=== PATIENT | male | born 1950 | race Caucasian/White ===

== ENCOUNTER 2019-04-14 14:21 | Emergency (ER) | payer MEDICARE, OTHER ==
[~2019-04-14] VITALS: Ht 175.3 cm; Wt 81.2 kg
[~2019-04-14 14:21] MED LIST: ASPI325 PO; Aspir-Low81 MG PO; BUDE10.22; CITA20 PO; HYDACE10B PO; INDO25 PO; LEVO750 PO; LISHYD1012 PO; METO25ER PO; OMEP20ER PO; SILSUL1TC TOP; SIMV10 PO
[2019-04-14] MEDS ORDERED: Ciprodex Otic7.5 ML RIGHTEAR (15:09)
== END 2019-04-14 15:16 | disposition home or self-care (01) ==
LOC: ER 14:21
DX: H60.91 Unspecified otitis externa, right ear (principal); Z79.899 Other long term (current) drug therapy; Z79.82 Long term (current) use of aspirin; I10 Essential (primary) hypertension; J45.909 Unspecified asthma, uncomplicated; E78.00 Pure hypercholesterolemia, unspecified; Z87.891 Personal history of nicotine dependence
CPT/HCPCS: 99282

== ENCOUNTER 2022-01-13 14:56 | Inpatient (IN) | payer MEDICARE, OTHER ==
[~2022-01-13] VITALS: Ht 175.3 cm; Wt 82.9 kg
[~2022-01-13 14:56] MED LIST changes: +Ciprodex Otic7.5 ML RIGHTEAR
[2022-01-13 15:21] LABS: BASOPHILS ABSOLUTE AUTO 0.03 K/mm3 (0.00-0.23); BASOPHILS PERCENT AUTO 0 % (0-2); EOSINOPHILS ABSOLUTE AUTO 0.09 K/mm3 (0.00-0.68); EOSINOPHILS PERCENT AUTO 1 % (0-6); Hematocrit 38.6 % (37.0-53.0); Hemoglobin 13.3 g/dL (13.5-17.5); IMMATURE GRAN ABSOLUTE AUTO 0.02 K/mm3 (0.00-0.10); IMMATURE GRAN PERCENT AUTO 0 % (0-1); LYMPHOCYTES ABSOLUTE AUTO 1.53 K/mm3 (0.84-5.20); LYMPHOCYTES PERCENT AUTO 21 % (21-46); MONOCYTES ABSOLUTE AUTO 0.72 K/mm3 (0.16-1.47); MONOCYTES PERCENT AUTO 10 % (4-13); Mean Corpuscular HGB 31.3 pg (26.0-34.0); Mean Corpuscular HGB Conc 34.5 g/dL (31.5-36.5); Mean Corpuscular Volume 91 fL (80-100); Mean Platelet Volume 10.2 fL (9.1-12.4); NEUTROPHILS ABSOLUTE AUTO 4.98 K/mm3 (1.96-9.15); NEUTROPHILS PERCENT AUTO 68 % (41-73); Platelet Count 177 K/mm3 (150-400); RDW Coefficient Variation 12.9 % (11.7-14.2); RDW Standard Deviation 42.4 fL (35.1-46.3); Red Blood Cell Count 4.25 M/mm3 (4.30-5.90); White Blood Cell Count 7.37 K/mm3 (4.00-11.30)
[2022-01-13 15:42] LABS: Bilirubin, Total 0.6 mg/dL (0.1-1.0); Bun/Creatinine Ratio 29.7 (12.0-20.0); Calcium, Blood 9.3 mg/dL (8.5-10.1); Creatinine, Blood 0.98 mg/dL (0.60-1.20); Globulin, Blood 4.2 g/dL (2.2-4.0); Potassium, Blood 4.7 mmol/L (3.5-5.5); Total Protein, Blood 8.2 g/dL (6.4-8.2)
[2022-01-13 17:06] LABS: International Normalized Ratio 1.11; Prothrombin Time Results 11.6 Sec (9.7-11.5)
--- NOTE | 2022-01-13 18:17 | NUR ---
PT ARRIVED TO UNIT, AMBULATED TO BED. ALERT AND ORIENTED. PT'S SPOUSE AT BEDSIDE. VSS, ON ROOM AIR, TOLERATING WELL. PT DENIED CHEST PAIN, HOWEVER ENDORSED 3/10 CHEST TIGHTNESS. HEPARIN GTT STARTED PER EMAR, WCSTELLA.
--- NOTE | 2022-01-13 21:46 | NUR ---
Assumed care 1900 VSS on RA. A&O. Pt will be NPO at midnight for possible angio tomorrow. Heparin gtt and 1L NS fluids running. Will continue to monitor.
[2022-01-14 00:27] LABS: BASOPHILS ABSOLUTE AUTO 0.03 K/mm3 (0.00-0.23); BASOPHILS PERCENT AUTO 1 % (0-2); EOSINOPHILS ABSOLUTE AUTO 0.18 K/mm3 (0.00-0.68); EOSINOPHILS PERCENT AUTO 3 % (0-6); Hematocrit 36.7 % (37.0-53.0); Hemoglobin 12.4 g/dL (13.5-17.5); IMMATURE GRAN ABSOLUTE AUTO 0.01 K/mm3 (0.00-0.10); IMMATURE GRAN PERCENT AUTO 0 % (0-1); LYMPHOCYTES ABSOLUTE AUTO 1.86 K/mm3 (0.84-5.20); LYMPHOCYTES PERCENT AUTO 33 % (21-46); MONOCYTES PERCENT AUTO 13 % (4-13); Mean Corpuscular HGB 31.2 pg (26.0-34.0); Mean Corpuscular HGB Conc 33.8 g/dL (31.5-36.5); Mean Corpuscular Volume 92 fL (80-100); NEUTROPHILS ABSOLUTE AUTO 2.83 K/mm3 (1.96-9.15); NEUTROPHILS PERCENT AUTO 50 % (41-73); Platelet Count 144 K/mm3 (150-400); RDW Standard Deviation 43.9 fL (35.1-46.3); Red Blood Cell Count 3.98 M/mm3 (4.30-5.90); White Blood Cell Count 5.61 K/mm3 (4.00-11.30)
[2022-01-14 00:45] LABS: Albumin, Blood 3.6 g/dL (3.4-5.0); Albumin/Globulin Ratio 1.1 (0.8-1.8); Bilirubin, Total 0.4 mg/dL (0.1-1.0); Bun/Creatinine Ratio 28.3 (12.0-20.0); Calcium, Blood 8.7 mg/dL (8.5-10.1); Creatinine, Blood 0.96 mg/dL (0.60-1.20); Globulin, Blood 3.4 g/dL (2.2-4.0); Potassium, Blood 4.1 mmol/L (3.5-5.5)
--- NOTE | 2022-01-14 04:30 | NUR ---
automotive technician instructor note: A&O, pleasant with cares. VSS on RA. Tele: SB/NSR, murmur heard. Pt has been NPO since midnight for possible heart cath today. Pt is up to the toilet w/supervision and help with lines.
[2022-01-14 09:07] LABS: CHOL/HDL RATIO 3.3; Cholesterol 150 mg/dL (50-200); HDL Cholesterol 45 mg/dL (>39); LDL/HDL RATIO 1.9; Low Density Lipoprotein Chol 85 mg/dL (0-110); Triglycerides 98 mg/dL (30-160); Very Low Density Lipoprot Chol 19 mg/dL (6-32)
--- NOTE | 2022-01-14 10:06 | NUR ---
Echocardiogram completed.
--- NOTE | 2022-01-14 13:25 | NUR ---
Spiritual Care Request from Pt. via floor nurse. Pt. is awake in bed and welcomes my visit. Pt. is pleasant and has few concerns. Pt. was able to verbalize in detail the procedure he would be having. Listen empathetically, and re-establish rapport as this Pt. is known to this electric shipyard operator outside the hospital. Pastoral employment counselor is remembered and given. Pt. displays evidence of engagement and agreement. Prayed with Pt. Pt. verbalized gratitude for the spiritual care visit. This electric shipyard operator will check on the Pt. later when his spouse is present.
--- NOTE | 2022-01-14 17:24 | NUR ---
SHIFT SUMMARY NO ACUTE EVENTS THIS SHIFT, VSS. PT ALERT AND ORIENTED, ABLE TO AMBULATE INDEPENDENTLY IN ROOM. HEPARIN GTT RUNNING PER EMAR. PT DENIED CHEST PAIN/PRESSURE/DISCOMFORT THIS SHIFT.
--- NOTE | 2022-01-14 18:23 | NUR ---
Pt. is awake. Spouse is present. Both welcome my visit. Pt. is pleasant, and scheduled for a procedure in the morning. Re-establish rapport, and give pastoral high school counselor to both Pt. and spouse. Explored issues of linda and belief. Pt. displays evidence of a confident hope with the procedure. Pt. and spouse verbalize gratitude for the spiritual care visit.
[2022-01-15 04:09] LABS: BASOPHILS ABSOLUTE AUTO 0.05 K/mm3 (0.00-0.23); BASOPHILS PERCENT AUTO 1 % (0-2); EOSINOPHILS ABSOLUTE AUTO 0.14 K/mm3 (0.00-0.68); EOSINOPHILS PERCENT AUTO 3 % (0-6); Hematocrit 36.9 % (37.0-53.0); Hemoglobin 12.4 g/dL (13.5-17.5); IMMATURE GRAN ABSOLUTE AUTO 0.02 K/mm3 (0.00-0.10); IMMATURE GRAN PERCENT AUTO 0 % (0-1); LYMPHOCYTES ABSOLUTE AUTO 1.81 K/mm3 (0.84-5.20); LYMPHOCYTES PERCENT AUTO 32 % (21-46); MONOCYTES ABSOLUTE AUTO 0.65 K/mm3 (0.16-1.47); MONOCYTES PERCENT AUTO 11 % (4-13); Mean Corpuscular HGB 30.8 pg (26.0-34.0); Mean Corpuscular HGB Conc 33.6 g/dL (31.5-36.5); Mean Corpuscular Volume 92 fL (80-100); Mean Platelet Volume 9.9 fL (9.1-12.4); NEUTROPHILS ABSOLUTE AUTO 3.04 K/mm3 (1.96-9.15); NEUTROPHILS PERCENT AUTO 53 % (41-73); Platelet Count 145 K/mm3 (150-400); RDW Coefficient Variation 12.9 % (11.7-14.2); RDW Standard Deviation 43.3 fL (35.1-46.3); Red Blood Cell Count 4.02 M/mm3 (4.30-5.90); White Blood Cell Count 5.71 K/mm3 (4.00-11.30)
[2022-01-15 04:27] LABS: Albumin, Blood 3.5 g/dL (3.4-5.0); Anion Gap 8 mmol/L (6-16); Blood Urea Nitrogen 22 mg/dL (8-24); Bun/Creatinine Ratio 26.3 (12.0-20.0); CHOL/HDL RATIO 2.8; CO2, Blood 25 mmol/L (21-32); Calcium, Blood 9.2 mg/dL (8.5-10.1); Chloride, Blood 104 mmol/L (98-108); Cholesterol 129 mg/dL (50-200); Creatinine, Blood 0.84 mg/dL (0.60-1.20); Glomerular Filtration Rate 93 (60-); Glucose, Blood 114 mg/dL (70-99); HDL Cholesterol 46 mg/dL (>39); LDL/HDL RATIO 1.2; Low Density Lipoprotein Chol 55 mg/dL (0-110); Phosphorus, Blood 4.1 mg/dL (2.5-4.9); Sodium, Blood 137 mmol/L (136-145); Triglycerides 142 mg/dL (30-160); Very Low Density Lipoprot Chol 28 mg/dL (6-32)
--- NOTE | 2022-01-15 04:59 | NUR ---
Spot Welder Body Assembly Note: VSS on RA, BP soft overnight with MAP >65 after evening metoprolol dose. Tele: SB 50-60s. NPO after midnight for angio this AM. Heparin gtt rate change once overnight, was decreased to 14unit/kg/hr. Pt up to bathroom independently, just needs help with lines.
--- NOTE | 2022-01-15 07:42 | NUR ---
PT TRANSPORTED TO [facility] AT THIS TIME.
--- NOTE | 2022-01-15 15:21 | NUR ---
Spiritual Care (2 Pt.) Pt. 1: (Approx. 11:00) Pt. is awake in bed and welcomes my visit. Pt. is unsettled about the results of his potential stent procedure. He verbalized thta he will need a couple valves transplanted. As Pt. updates me, he becomes more cathartic. With a calmimg presence and pastoral supervisor counseling and guidance, Pt. displays eveidence of renewed hope. Theraputic listening resulted in the revealing of some broken family relationships. During these moments, an fleet technician arrived for the pt. and our discussion was paused. Pt. 2 (approx. 14:45) Pt. is awake and welcomes my visit. Spouse is present. Re-establish rapport. Pt. quickly resumes being cathartic over the discussion of his children. With a calming presence an an empathetic demeanor, the Pt. displayed evidence of confidence and agreement. Prayed with Pt. and Spouse. Bp Pt. and spouse verbalized gratitude for the spiritual care visit.
--- NOTE | 2022-01-15 18:16 | NUR ---
ASSUMED CARE OF PT AT 0700. PT TO RELIEF CAPTAIN TODAY, NO INTERVENTIONS. PT HAS SEVERE 3 VESSEL DISEASE AND WILL NEED CARDIAC SURGERY. R RADIAL SITE WNL, TR BAND REMOVED PER MD ORDERS. NO BLEEDING OR HEMATOMA NOTED. PT DENIES CHEST PRESSURE/PAIN. FAMILY AT BEDSIDE T/O DAY. UNSURE OF PLAN AT THIS TIME, IF PT WILL BE COBRA TRANSFERRED FOR SURGERY OR FOLLOW UP AN OUT PT. PT ABLE TO AMBULATE IN ROOM WITH MINIMAL ASSISTANCE. NO ACUTE EVENTS T/O SHIFT. CALL LIGHT IN REACH, WILL CONTINUE TO MONITOR AND GIVE REPORT TO ONCOMING NOC SHIFT RN.
[2022-01-16 03:30] LABS: Hemoglobin 12.3 g/dL (13.5-17.5); Mean Corpuscular HGB 30.8 pg (26.0-34.0); Mean Corpuscular HGB Conc 33.2 g/dL (31.5-36.5); Mean Corpuscular Volume 93 fL (80-100); Mean Platelet Volume 9.8 fL (9.1-12.4); Platelet Count 131 K/mm3 (150-400); RDW Coefficient Variation 12.7 % (11.7-14.2); Red Blood Cell Count 3.99 M/mm3 (4.30-5.90); White Blood Cell Count 5.56 K/mm3 (4.00-11.30)
[2022-01-16 03:46] LABS: Albumin, Blood 3.6 g/dL (3.4-5.0); Anion Gap 9 mmol/L (6-16); Blood Urea Nitrogen 20 mg/dL (8-24); Bun/Creatinine Ratio 23.5 (12.0-20.0); CO2, Blood 27 mmol/L (21-32); Calcium, Blood 8.9 mg/dL (8.5-10.1); Chloride, Blood 103 mmol/L (98-108); Creatinine, Blood 0.85 mg/dL (0.60-1.20); Glomerular Filtration Rate 93 (60-); Glucose, Blood 104 mg/dL (70-99); Potassium, Blood 4.2 mmol/L (3.5-5.5); Sodium, Blood 139 mmol/L (136-145)
--- NOTE | 2022-01-16 18:17 | NUR ---
NO ACTUE EVENTS T/O SHIFT. PT CONTINUES TO AWAIT COBRA TRANSFER TO [facility] FOR SURGERY. SEE DOCUMENTED ASSESSMENT AND VS. PT HAS DENIES CHEST PAIN/PRESSURE T/O SHIFT. FAMILY IN TO VISIT TODAY. CHARGE NURSE HAS TOUCHED BASE WITH [facility] TODAY REGARDING BED AVAILABILITY. PT IS AMBULATORY IN ROOM, NO NEEDS AT THIS TIME, CALL LIGHT IN REACH, WILL CONTINUE TO MONITOR AND GIVE REPORT TO ONCOMING NOC SHIFT RN.
--- NOTE | 2022-01-16 22:58 | NUR ---
~2229 GAVE REPORT TO BRYON RN, PT TO BE TRANSFERED VIA AMBULANCE
--- NOTE | 2022-01-16 23:45 | NUR ---
DC PT TRANSPORTED VIA [email or web address] WITH ALL BELONGINGS @[id number]. ALL CONSENTS SIGNED. PT EDUCATION PROVIDED.
--- NOTE | 2022-01-16 23:48 | NUR ---
2345 pt transfered out via ambulance staff, and stretcher, all belongings sent with
== END 2022-01-16 23:46 | disposition short-term general hospital (02) | DRG 287 ==
LOC: ER 14:56 → PCU 14:57 → ER 14:58 → PCU 14:58
PROVIDERS: Emergency Medicine; Internal Medicine; Internal Medicine Cardiovascular Disease; Physician Assistant; ADMIT Internal Medicine
PROC: 4A023N7 Measurement of Cardiac Sampling and Pressure, Left Heart, Percutaneous Approach (ICD-10-PCS; principal; 2022-01-15)
PROC: B2111ZZ Fluoroscopy of Multiple Coronary Arteries using Low Osmolar Contrast (ICD-10-PCS; 2022-01-15)
DX: I25.110 Atherosclerotic heart disease of native coronary artery with unstable angina pectoris (principal); I50.32 Chronic diastolic (congestive) heart failure; I11.0 Hypertensive heart disease with heart failure; C61 Malignant neoplasm of prostate; F32.A Depression, unspecified; E03.9 Hypothyroidism, unspecified; I35.0 Nonrheumatic aortic (valve) stenosis; J45.909 Unspecified asthma, uncomplicated; E78.5 Hyperlipidemia, unspecified; F43.29 Adjustment disorder with other symptoms; M19.90 Unspecified osteoarthritis, unspecified site; Z96.653 Presence of artificial knee joint, bilateral; Z90.49 Acquired absence of other specified parts of digestive tract; Z98.890 Other specified postprocedural states; Z79.2 Long term (current) use of antibiotics; Z79.82 Long term (current) use of aspirin; Z79.899 Other long term (current) drug therapy
CPT/HCPCS: 36415; 71045; 80053; 80061; 80069; 83036; 83880; 84484; 85025; 85027; 85520; 85610; 85730; 93005; 93010; 93306; 93454; 93880; 94640; 94664; 94760; 96374; 96376; 99152; 99153; 99285-25; A9270; C1769; C1894; G0378; J1644; J1650; J2250; J3010; J7030; J7040; Q9967